=== PATIENT | female | born 1945 | race Caucasian/White ===

== ENCOUNTER 2018-11-14 00:15 | Outpatient (CLI) | payer MEDICARE, SELFPAY ==
--- NOTE | 2018-11-14 14:00 | DI.RAD_ITS ---
SYMPTOMS/DIAGNOSIS: SCREENING FOR OSTEOPOROSIS IN A POSTMENOPAUSAL WOMAN, Z78.0 DEXA SCAN: Routine examination. The lateral view of the spine shows no compression deformities. Evaluation of the left hip shows a total T score of -0.5 and a Z score of 1.1. This is within normal limits. This compares with a total T score of 0.6 from 2005. Evaluation of the lumbar spine shows a total T score of 2 and a Z score of 4.2. This is within normal limits. This compares with a total T score of 1.1 from 2005. There is no evidence of osteoporosis. IMPRESSION: No evidence of osteoporosis.
== END 2018-11-14 00:35 ==
PROVIDERS: PCP Physician Assistant Medical; Visit Provider Nurse Practitioner Family
DX: Z13.820 Encounter for screening for osteoporosis (principal); Z78.0 Asymptomatic menopausal state
CPT/HCPCS: 77080

== ENCOUNTER 2018-12-03 09:27 | Outpatient (REF) | payer MEDICARE, SELFPAY ==
[2018-12-03 21:10] LABS: Anion Gap 7.4 mmol/L (3-11); BUN 17 mg/dL (7-18); CO2 28.6 mmol/L (21.0-32.0); CREATININE 0.87 mg/dL (0.55-1.02); Calcium 9.1 mg/dL (8.5-10.1); Chloride 103 mmol/L (98-107); Cholesterol 179 mg/dL (50-200); Glucose 88 mg/dL (70-100); HDL Cholesterol 54 mg/dL (40-60); LDL CHOLESTEROL 108 mg/dL (<100); Sodium 139 mmol/L (136-145); Triglyceride 105 mg/dL (30-150)
== END 2018-12-03 09:47 ==
LOC: NCHCN 09:27
PROVIDERS: PCP Physician Assistant Medical; Visit Provider Nurse Practitioner Family
DX: I10 Essential (primary) hypertension (principal); E78.5 Hyperlipidemia, unspecified
CPT/HCPCS: 80048; 80061; 83721

== ENCOUNTER 2019-03-31 12:02 | Outpatient (REF) | payer MEDICARE, SELFPAY ==
[2019-03-31 22:52] LABS: ALT 25 U/L (12-78); AST 28 U/L (15-37); Creatine Kinase 395 U/L (26-192)
== END 2019-03-31 12:22 ==
LOC: NCHCN 12:02
PROVIDERS: PCP Physician Assistant Medical; Visit Provider Nurse Practitioner Family
DX: E78.5 Hyperlipidemia, unspecified (principal); R21 Rash and other nonspecific skin eruption; F17.209 Nicotine dependence, unspecified, with unspecified nicotine-induced disorders
CPT/HCPCS: 82550; 84450; 84460

== ENCOUNTER 2019-08-28 11:29 | Outpatient (REF) | payer MEDICARE, SELFPAY ==
[2019-08-28 22:27] LABS: C-Reactive Protein 0.19 mg/dL (0.0-0.3); Uric Acid 3.6 mg/dL (2.6-6.0)
[2019-08-28 22:41] LABS: HDL Cholesterol 59 mg/dL (40-60); LDL CHOLESTEROL 95 mg/dL (<100)
[2019-08-28 23:13] LABS: ESR 28 mm/hr (0-30)
== END 2019-08-28 11:49 ==
LOC: NCHCN 11:29
PROVIDERS: PCP Physician Assistant Medical; Visit Provider Nurse Practitioner Family
DX: E78.5 Hyperlipidemia, unspecified (principal); M10.041 Idiopathic gout, right hand
CPT/HCPCS: 83721; 85652; 83718; 84550; 86140

== ENCOUNTER 2019-10-09 14:45 | Outpatient (REF) | payer MEDICARE, SELFPAY ==
[2019-10-13 09:52] LABS: Beta 2 GP1 Ab IgG <9.4 U/mL; Beta 2 GP1 Ab IgM <9.4 U/mL
[2019-10-13 10:32] LABS: Cyclic Citrullinated Peptide <2.5 U/mL (<5.0)
[2019-10-13 12:55] LABS: Lyme Ab w Rflx to Lyme Confirm Negative (Negative)
[2019-10-14 15:31] LABS: ANA Interpretation Positive (Negative); ANA Titer Pattern 1:640 Homogeneous
== END 2019-10-09 15:05 ==
LOC: NCHCN 14:45
PROVIDERS: PCP Physician Assistant Medical; Visit Provider Nurse Practitioner Family
DX: M25.50 Pain in unspecified joint (principal)
CPT/HCPCS: 86146; 86200; 86038; 86431; 86618

== ENCOUNTER 2019-12-03 10:40 | Outpatient (REF) | payer MEDICARE, SELFPAY ==
[2019-12-03 20:34] LABS: Anion Gap 9.5 mmol/L (3-11); BUN 22 mg/dL (7-18); CO2 27.5 mmol/L (21.0-32.0); CREATININE 0.76 mg/dL (0.55-1.02); Calcium 8.8 mg/dL (8.5-10.1); Chloride 106 mmol/L (98-107); Glucose 83 mg/dL (74-106); Potassium 4.3 mmol/L (3.5-5.1); Sodium 143 mmol/L (136-145)
== END 2019-12-03 11:00 ==
LOC: NCHCN 10:40
PROVIDERS: PCP Physician Assistant Medical; Visit Provider Nurse Practitioner Family
DX: I10 Essential (primary) hypertension (principal)
CPT/HCPCS: 80048

== ENCOUNTER 2020-06-03 10:55 | Outpatient (REF) | payer MEDICARE, SELFPAY ==
[2020-06-03 19:51] LABS: HGB 13.6 g/dL (11.2-15.7); MCH 29.2 pg (27.0-33.0); MCHC 32.4 % (32.0-36.0); MCV 90.1 fL (80-95); MPV 11.2 fL (8.0-11.0); Platelet Count 215 10^3/uL (130-400); RBC 4.66 10^6/uL (3.93-5.22); RDW-SD 49.1 fL; WBC 8.86 10^3/uL (4.4-10.8)
[2020-06-03 20:28] LABS: ALT 19 U/L (14-59); AST 21 U/L (15-37); Anion Gap 7.6 mmol/L (3-11); BUN 18 mg/dL (7-18); CO2 26.4 mmol/L (21.0-32.0); CREATININE 0.75 mg/dL (0.55-1.02); Calcium 8.8 mg/dL (8.5-10.1); Chloride 103 mmol/L (98-107); Glucose 93 mg/dL (74-106); HDL Cholesterol 62 mg/dL (40-60); LDL CHOLESTEROL 84 mg/dL (<100); Sodium 137 mmol/L (136-145)
== END 2020-06-03 11:15 ==
LOC: NCHCN 10:55
PROVIDERS: PCP Physician Assistant Medical; Visit Provider Nurse Practitioner Family
DX: E78.5 Hyperlipidemia, unspecified (principal); I10 Essential (primary) hypertension; Z79.899 Other long term (current) drug therapy
CPT/HCPCS: 80048; 83721; 85027; 83718; 84450; 84460

== ENCOUNTER 2020-09-06 01:12 | Outpatient (CLI) | payer MEDICARE, SELFPAY ==
--- NOTE | 2020-09-06 | DI.MAMMO_ITS ---
EXAM: MG MAMMO SCREENING CLINICAL HISTORY: SCREENING,[facility],Z00.00. TECHNIQUE: Bilateral full field digital CC and MLO mammographic images were obtained with 3D tomosyn thesis and utilizing computer aided detection (CAD). COMPARISON: Prior mammograms dating back to 2011, the most recent being 2015. FINDINGS: There are no CAD designations. There are no spiculated masses nor malignant appearing microcalcification groups. There is no signif icant architectural distortion nor skin thickening-retraction. IMPRESSION: No radiographic evidence of malignancy. BI-RADS Category 1 - Negative Breast Density - Category B - Scattered areas of fibroglandular density Breast density Category C or D implies that the patient has dense breast tissue. Dense breast tissue can make it harder to find cancer on a mammogram. Dense breast tissue is also associated with an incr eased risk of breast cancer. This information about the result of the mammogram report was provided to the patient to raise their awareness. Use this report when you speak with the patient about their risks for breast cancer, which includes their family history. At that time, you may recommend additional screening tests (Ultrasoun d or MRI) as these tests may add significant information. A negative radiographic report should not delay biopsy if a dominant or clinically suspicious mass is present. Up to ten percent of cancers are not identified on mammography. A negative report may reinforce clinical impression. Adenosis and dense breasts may obscure an underlying neoplasm. False positive reports average 6 to 10%. Patient will receive a letter notifying them of these results.
== END 2020-09-06 01:32 ==
PROVIDERS: PCP Nurse Practitioner Family; Visit Provider Nurse Practitioner Family
DX: Z12.31 Encounter for screening mammogram for malignant neoplasm of breast (principal); Z00.00 Encounter for general adult medical examination without abnormal findings
CPT/HCPCS: 77063; 77067

== ENCOUNTER 2021-02-08 18:06 | Outpatient (CLI) | payer MEDICARE, SELFPAY ==
--- NOTE | 2021-02-08 | DI.RAD_ITS ---
Exam(s) XR CHEST 2V PA LATERAL EXAM: XR CHEST 2V PA LATERAL CLINICAL HISTORY: + QUANTIFERON TB GOLD TEST, R76.12 TECHNIQUE: 2D digital imaging was performed. COMPARISON: CR CHEST 2 VIEWS PA,LAT from 12/23/2009 CT ABD PELVIS WO CONTRAST from 04/25/2017 CT ABD PELVIS WO CONTRAST from 04/25/2017 FINDINGS: There is severe underlying fibrotic changes as well as emphysematous changes in both upper and lower lobes. The fibrotic changes appears somewhat more prominent when compared with the previous exam. T here is a question of a superimposed area of nodularity seen in the right mid lung field and in the r ight upper lobe. There is also question of an area of nodularity in the mid left lung field. There is no evidence of effusion. There is no gross evidence of adenopathy. The heart size is normal. Th ere is some calcification at the aortic arch. The bones are unremarkable. IMPRESSION: Underlying emphysematous and fibrotic changes. Question of super imposed areas bilateral nodularity. CT is recommended for further evaluation. DATA REPOSITORY: RADIATION DOSE DELIVERED:
== END 2021-02-08 18:26 ==
PROVIDERS: PCP Nurse Practitioner Family; Visit Provider Internal Medicine
DX: R76.12 Nonspecific reaction to cell mediated immunity measurement of gamma interferon antigen response without active tuberculosis (principal); J84.10 Pulmonary fibrosis, unspecified; J43.8 Other emphysema; R91.8 Other nonspecific abnormal finding of lung field
CPT/HCPCS: 71046

== ENCOUNTER 2021-02-14 01:11 | Outpatient (CLI) | payer MEDICARE, SELFPAY ==
--- NOTE | 2021-02-14 | DI.CT_ITS ---
Exam(s) CT CHEST W EXAM: CT CHEST W CLINICAL HISTORY: PULMONARY NODULE,R91.1,SMOKER,F17.210,POSITIVE TB GOLD TEST,R76.12. TECHNIQUE: Multi planar reconstructions were performed. CONTRAST MATERIAL: Omnipaque 350; 100 cc COMPARISON: CT ABD PELVIS WO CONTRAST from 04/25/2017 CR XR CHEST 2V PA LATERAL from 02/08/2021 CR XR CHEST 2V PA LATERAL from 02/08/2021 FINDINGS: CHEST: LUNGS: There is interstitial fibrosis both lung subramanian. In addition, there are significant nodular d ensities in the right lung, the largest measuring 3 x 2.5 cm in corresponding to finding on the recen t chest x-ray. Suspicious for malignancy. Also another slightly smaller nodule in the right upper l obe measuring 1.8 by 1.0 cm, also suspicious. Above this level medially is another slightly smaller nodule also suspicious. There are no distinct focal suspicious nodules in the opposite-left lung. T here are no pleural effusions on either side. No significant focal findings in the trachea and atilio tem bronchi. MEDIASTINUM: There is no hilar nor mediastinal adenopathy. Visualized thyroid unremarkable.Aberrant r ight subclavian artery noted CARDIAC: Heart size is normal. There is no pericardial effusion.Caliber of the thoracic aorta is wit hin normal limits. There is an aberrant right subclavian artery which crosses to the right side betw een the esophagus and vertebral body. VISUALIZED UPPER ABDOMEN:Small benign cyst in the upper pole right kidney which measures 10 millimete rs. There is an abdominal aortic stent graft only partially included field of view. OSSEOUS: No significant osseous lesions.. IMPRESSION: 1. Severe bilateral interstitial chronic fibrosis disease with superimposed suspicious nodular infilt rates in the right lung, the largest measuring approximately 3 x 2.5 cm. These are suspicious for ma lignancy. 2. There are no nodules in the left lung. No pleural effusions on either side. 3. No obvious adenopathy. Incidentally noted is an aberrant right subclavian artery. RADIATION DOSE DELIVERED: 497.91mGy.cm Total DLP DATA REPOSITORY: All CT scans at this facility are submitted to the National Radiology Data Registry (NRDR) Dose Index Registry (DIR) with the [employer] (ACR). RADIATION OPTIMIZATION: All CT scans at this facility use at least one of these dose optimization te chniques: automated exposure control; mA and/or kV adjustment per patient size (includes targeted exa ms where dose is matched to clinical indication); or iterative reconstruction.
[2021-02-14] MEDS: Omnipaque 350 MG/ML 100 ML BTL IV (14:34)
[2021-02-14] MEDS: Normal Saline - Diluent 50 ML VIAL IV (14:35)
== END 2021-02-14 01:31 ==
PROVIDERS: PCP Nurse Practitioner Family; Visit Provider Nurse Practitioner
DX: R91.1 Solitary pulmonary nodule (principal); F17.210 Nicotine dependence, cigarettes, uncomplicated; R76.12 Nonspecific reaction to cell mediated immunity measurement of gamma interferon antigen response without active tuberculosis; J84.10 Pulmonary fibrosis, unspecified; J98.4 Other disorders of lung
CPT/HCPCS: 71260; J3490

== ENCOUNTER 2021-03-08 01:06 | Outpatient (CLI) | payer MEDICARE, SELFPAY ==
--- NOTE | 2021-03-08 14:45 | DI.US_ITS ---
APPROVED REPORT EXAM: Comprehensive 2D, Doppler, and color-flow Echocardiogram Patient Location: Out-Patient Gastroenterology Nurse Practitioner: Indira Dubois RDCS (AE) Indications: Preop Exam, Lung mass Other Information Study Quality: Adequate Conclusion Normal left ventricular wall thickness and chamber size. Estimated ejection fraction is 60%. Wall m otion is normal Normal right ventricular size and systolic function Both atria are normal in size No significant valvular disease is identified Wall motion Left Ventricle The left ventricle is normal size. The left ventricular systolic function is normal. The left ventric ular ejection fraction is within the normal range. There is normal left ventricular wall thickness. T here is normal LV segmental wall motion. There is no ventricular septal defect visualized. LVEF is 58 %. Right Ventricle The right ventricle is normal size. The right ventricular systolic function is normal. The RVSP is 28 .9mmHg. Atria The left atrium size is normal. The right atrium size is normal. The interatrial septum is intact wit h no evidence for an atrial septal defect. Aortic Valve The aortic valve is normal in structure. Aortic valve is trileaflet. There is no aortic valvular sten osis. No aortic regurgitation is present. Mitral Valve The mitral valve is normal in structure. No evidence of mitral valve stenosis. Trace mitral regurgita tion. Tricuspid Valve The tricuspid valve is normal in structure. There is no tricuspid valve stenosis. Mild tricuspid regu rgitation. Pulmonic Valve The pulmonary valve is normal in structure. There is no pulmonic valvular stenosis. Mild pulmonic reg urgitation. Great Vessels The aortic root is normal in size. The ascending aorta is moderately dilated. Aortic arch is normal i n caliber. IVC is normal in size and collapses >50% with inspiration. Pericardium There is no pericardial effusion. 2D Dimensions IVSD d PLAX 0.93 cm F: 0.6-1.0 LV Vol A2C d MOD 86.6 mL LVPW d PLAX 0.93 cm F: 0.6 - 1.0 LV Vol A4C d MOD 89.5 mL LVID d PLAX 4.66 cm F: 3.8 - 5.2 LA vol/ BSA A2C s A-L 14.7 mL/m2 LVDs 3.00 cm F: 2.2 - 3.5 LA vol/ BSA A4C s A-L 10.3 mL/m2 Ao Root d 3.01 cm F: 2.7 - 3.3 LA Vol/ BSA Biplane s A-L 12.8 mL/m2 RA Area A4C 11.41 cm2 LA Area A4C s MOD 8.85 cm2 RA Vol/ BSA A4C s A-L 15.2 mL/m2 LA Area A2C s MOD 10.16 cm2 Ao Asc Diam d 3.61 cm F: 2.3 - 3.1 LV EF A4C MOD 57.1 % LV EF Teichholz 63.9 % LV EF A2C MOD 58.4 % LVEF (Scott's) 57.39 % F: 54 - 74 LV EF Biplane MOD 57.4 % LV Volume 71.46 mL F: 46 - 106 SV 52.09 mL LV Volume Index 41.06 mL/m2 F: 29 - 61 SV Index 29.93 mL/m2 LV Vol Biplane MOD 90.8 mL FS 34.70 % M-Mode TAPSE 2.72 cm (M/F) >1.7 LV Diastology MV E' medial 0.106 (>0.07 m/s) E/A Ratio 0.8 LV E/e MED 6.50 (<14) MV E Vmax 0.69 (0.4-1.3 m/s) MV E' lateral 0.084 (>0.1 m/s) MV A Vmax 0.85 (0.4-1.3 m/s) LV E/e LAT 8.20 (<14) MV E/A Ratio 0.79 MV E/E' medial 6.53 MV E/E' lateral 8.24 Aortic Valve LVOT Area 3.15 cm2 AoV Area Vmax 2.25 cm2 LVOT Vmax 1.21 m/s AoV Area/ BSA (Vmax) 1.30 cm2/m2 LVOT Mean Korey. 0.76 m/s MAGDI Mean Korey. 2.11 cm2 LVOT Peak Grad 5.8 mmHg MAGDI Mean Korey. Index 1.21 cm2/m2 LVOT Mean Grad 2.8 mmHg LVOT VTI 0.230 m LVOT Diam s 2.00 cm AoV Vmax 1.69 m/s Velocity Ratio 0.71 AoV Mean Korey. 1.13 m/s AoV Peak Grad 11.4 mmHg LVOT SV 72.32 mL AoV Mean Grad 5.8 mmHg AoV VTI 0.324 m AoV Area VTI 2.23 cm2 AoV Area/ BSA (VTI) 1.28 cm/m2 Mitral Valve MV DT 257 (160-240 msec) MV PHT 75 msec MV Area PHT 2.95 cm2 MV VTI 0.273 m MV VTI Annulus 0.280 m MV Area VTI 2.72 (4.0-6.0 cm2) Pulmonary Valve PV Vmax 1.13 (0.5-1.5 m/s) RVOT Peak Gr. 2.72 mmHg PV Peak Grad 5.1 mmHg RVOT Mean Gr. 1.15 mmHg PV Mean Grad 2.5 mmHg RVOT VTI 0.155 m PV VTI 0.192 m RVOT Vmax 0.82 m/s Tricuspid Valve TR Peak Grad 25.8 mmHg TR Vmax 2.54 m/s RA Pressure 3.00 mmHg RVSP (TR) 28.9 mmHg
== END 2021-03-08 01:26 ==
PROVIDERS: PCP Nurse Practitioner Family; Visit Provider Nurse Practitioner Family
DX: Z01.818 Encounter for other preprocedural examination (principal); I77.810 Thoracic aortic ectasia
CPT/HCPCS: 93306

== ENCOUNTER 2021-04-08 04:00 | Outpatient (CLI) | payer MEDICARE, SELFPAY ==
[2021-04-13 12:58] LABS: TB Interpretation Negative (Negative); TB1 Ag minus Nil 0.04 IU/ml
== END 2021-04-08 04:01 | disposition home or self-care (01) ==
LOC: LBO 04:01
PROVIDERS: PCP Nurse Practitioner Family; Visit Provider Nurse Practitioner
DX: R76.12 Nonspecific reaction to cell mediated immunity measurement of gamma interferon antigen response without active tuberculosis (principal)
CPT/HCPCS: 36415; 86480

== ENCOUNTER 2021-04-11 02:18 | Outpatient (RCR) | payer MEDICARE, SELFPAY ==
[2021-04-11 09:05] LABS: Abs Immature Grans 0.03 10^3/uL (0.0-0.06); Absolute Basophil Count 0.03 10^3/uL (0.0-0.2); Absolute Eosinophil Count 0.12 10^3/uL (0.0-0.7); Absolute Lymphocyte Count 1.43 10^3/uL (1.2-3.4); Absolute Monocyte Count 0.66 10^3/uL (0.1-0.8); Absolute Neutrophil Count 4.66 10^3/uL (1.2-6.7); Basophils % 0.4; Eosinophils % 1.7; HCT 37.6 % (36.0-46.0); HGB 12.3 g/dL (11.2-15.7); Immature Grans % 0.4; Lymphocytes % 20.6; MCH 28.8 pg (27.0-33.0); MCHC 32.7 % (32.0-36.0); MCV 88.1 fL (80-95); MPV 9.8 fL (8.0-11.0); Monocytes % 9.5; Neutrophils % 67.4; Nucleated RBC 0 %; Platelet Count 238 10^3/uL (130-400); RBC 4.27 10^6/uL (3.93-5.22); RDW 14.4 % (11.7-14.6); RDW-SD 46.1 fL; WBC 6.93 10^3/uL (4.4-10.8)
[2021-04-11 09:27] LABS: ALT 16 U/L (14-59); AST 24 U/L (15-37); Albumin 3.1 g/dL (3.4-5.0); Alkaline Phosphatase 31 U/L (46-116); Anion Gap 7.2 mmol/L (3-11); BUN 16 mg/dL (7-18); Bilirubin, Total 0.4 mg/dL (0.2-1.0); CO2 26.8 mmol/L (21.0-32.0); CREATININE 0.8 mg/dL (0.55-1.02); Calcium 8.2 mg/dL (8.5-10.1); Chloride 102 mmol/L (98-107); FREE T4 1.23 ng/dL (0.76-1.46); Glucose 90 mg/dL (74-106); Magnesium 1.6 mg/dL (1.8-2.4); Potassium 3.6 mmol/L (3.5-5.1); Sodium 136 mmol/L (136-145); TSH 1.62 uIU/mL (0.36-3.74); Total Protein 7.4 g/dL (6.4-8.2)
[2021-04-11] MEDS: Normal Saline Flush 10 ML SYR IVP (09:44)
== END 2021-04-23 23:59 | disposition home or self-care (01) ==
LOC: INF 02:18
PROVIDERS: PCP Nurse Practitioner Family; Visit Provider Internal Medicine Medical Oncology
DX: C34.91 Malignant neoplasm of unspecified part of right bronchus or lung (principal); Z79.899 Other long term (current) drug therapy; Z45.2 Encounter for adjustment and management of vascular access device
CPT/HCPCS: 36591; 80053; 83735; 84439; 84443; 85025

== ENCOUNTER 2021-05-16 01:30 | Outpatient (CLI) | payer MEDICARE, SELFPAY ==
--- NOTE | 2021-05-16 | DI.CT_ITS ---
Exam(s) CT CHEST W EXAM: CT CHEST W CLINICAL HISTORY: STAGE 4 LUNG CA RT, C34.91, RESTAGING. TECHNIQUE: Multi planar reconstructions were performed. CONTRAST MATERIAL: Omnipaque 350; 75 cc COMPARISON: CT CT CHEST W from 02/14/2021 FINDINGS: CHEST: LUNGS: Again noted is interpositional fibrosis in both lung subramanian including honeycombing bilaterally . In the right lung the largest infiltrate previously described as decreased in size, previously marcell suring 3 x 2.4 cm and presently measuring 2.7 by 1.8 cm. A paracentral right upper lobe density is a gain noted. Previously present right upper lobe nodule measuring 12 x 12 millimeters as almost compl etely resolved. Pleural based density anteriorly in the right upper lobe appears unchanged. No new right lung findings small density in the left lung is somewhat less evident on the present study. No pleural effusion on either side. Nor pleural effusion. MEDIASTINUM: There is no hilar nor mediastinal adenopathy. No supraclavicular adenopathy.Visualized t hyroid unremarkable. CARDIAC: Heart size is normal. There is no pericardial effusion.Coronary artery calcification noted. Aberrant right subclavian artery is again noted. VISUALIZED UPPER ABDOMEN:There are no significant adrenal masses. OSSEOUS: No significant osseous lesions.. IMPRESSION: 1. Compared to the prior CT scan of 02/14/2021 there is again noted severe bilateral interstitial chr onic fibrotic disease in both lung subramanian, including bilateral honeycombing. 2. Previously described right lung infiltrates are again noted. A few of these have significantly de creased in size in a few of remained unchanged. There are no new lung nodules evident. No pleural e ffusions. 3. No obvious intrathoracic adenopathy. Again noted is an aberrant right subclavian artery, previously documented. RADIATION DOSE DELIVERED: 459.39mGy.cm Total DLP DATA REPOSITORY: All CT scans at this facility are submitted to the National Radiology Data Registry (NRDR) Dose Index Registry (DIR) with the [employer] (ACR). RADIATION OPTIMIZATION: All CT scans at this facility use at least one of these dose optimization te chniques: automated exposure control; mA and/or kV adjustment per patient size (includes targeted exa ms where dose is matched to clinical indication); or iterative reconstruction.
[2021-05-16] MEDS: Omnipaque 350 MG/ML 100 ML BTL 70 ML IJ (14:17)
== END 2021-05-16 01:50 ==
PROVIDERS: PCP Nurse Practitioner Family; Visit Provider Internal Medicine Medical Oncology
DX: C34.91 Malignant neoplasm of unspecified part of right bronchus or lung (principal); J84.170 Interstitial lung disease with progressive fibrotic phenotype in diseases classified elsewhere; J98.4 Other disorders of lung; Q27.8 Other specified congenital malformations of peripheral vascular system; R91.8 Other nonspecific abnormal finding of lung field
CPT/HCPCS: 36591; 71260; J3490

== ENCOUNTER 2021-05-23 02:46 | Outpatient (RCR) | payer MEDICARE, SELFPAY ==
[2021-04-27] MEDS: Normal Saline Flush 10 ML SYR IVP (10:49)
[2021-04-27] MEDS: Heparin 500 UNITS/5 ML SYRINGE IV (10:49)
[2021-04-27 10:53] LABS: Absolute Basophil Count 0.04 10^3/uL (0.0-0.2); Absolute Eosinophil Count 0.05 10^3/uL (0.0-0.7); Absolute Lymphocyte Count 1.23 10^3/uL (1.2-3.4); Absolute Monocyte Count 0.98 10^3/uL (0.1-0.8); Basophils % 1.4; Eosinophils % 1.7; HCT 36.1 % (36.0-46.0); HGB 11.7 g/dL (11.2-15.7); Immature Grans % 3.5; Lymphocytes % 42.6; MCH 28.5 pg (27.0-33.0); MCHC 32.4 % (32.0-36.0); MCV 87.8 fL (80-95); MPV 8.7 fL (8.0-11.0); Monocytes % 33.9; Neutrophils % 16.9; Nucleated RBC 0 %; Platelet Count 271 10^3/uL (130-400); RBC 4.11 10^6/uL (3.93-5.22); RDW 14.6 % (11.7-14.6); RDW-SD 46.5 fL; WBC 2.89 10^3/uL (4.4-10.8)
[2021-04-27 11:08] LABS: Absolute Neutrophil Count 0.49 10^3/uL (1.2-6.7); Diff Comment Diff Reviewed; RBC Morphology Normal
[2021-04-27 11:16] LABS: ALT 19 U/L (14-59); AST 18 U/L (15-37); Albumin 3.2 g/dL (3.4-5.0); Alkaline Phosphatase 38 U/L (46-116); Anion Gap 6.3 mmol/L (3-11); BUN 8 mg/dL (7-18); Bilirubin, Total 0.4 mg/dL (0.2-1.0); CO2 28.7 mmol/L (21.0-32.0); CREATININE 0.6 mg/dL (0.55-1.02); Chloride 99 mmol/L (98-107); FREE T4 1.23 ng/dL (0.76-1.46); Glucose 94 mg/dL (74-106); Sodium 134 mmol/L (136-145); TSH 1.26 uIU/mL (0.36-3.74); Total Protein 7.8 g/dL (6.4-8.2)
[2021-05-02] MEDS: Normal Saline Flush 10 ML SYR IVP (08:48)
[2021-05-02 09:27] LABS: HGB 11.1 g/dL (11.2-15.7); MCH 28.3 pg (27.0-33.0); MCHC 32.6 % (32.0-36.0); MCV 86.7 fL (80-95); MPV 9.1 fL (8.0-11.0); Nucleated RBC 0 %; Platelet Count 325 10^3/uL (130-400); RBC 3.92 10^6/uL (3.93-5.22)
[2021-05-02 09:38] LABS: Absolute Lymphocyte Count 1.34 10^3/uL (1.2-3.4); Absolute Monocyte Count 0.93 10^3/uL (0.1-0.8); Absolute Neutrophil Count 7.62 10^3/uL (1.2-6.7); Bands % 4; Diff Comment Manual Differential; RBC Morphology Normal
[2021-05-02 09:52] LABS: ALT 16 U/L (14-59); AST 20 U/L (15-37); Albumin 2.9 g/dL (3.4-5.0); Alkaline Phosphatase 33 U/L (46-116); Anion Gap 6.2 mmol/L (3-11); BUN 10 mg/dL (7-18); Bilirubin, Total 0.4 mg/dL (0.2-1.0); CO2 28.8 mmol/L (21.0-32.0); CREATININE 0.7 mg/dL (0.55-1.02); Calcium 8.5 mg/dL (8.5-10.1); Chloride 101 mmol/L (98-107); Glucose 96 mg/dL (74-106); Potassium 4.1 mmol/L (3.5-5.1); Sodium 136 mmol/L (136-145); TSH 0.94 uIU/mL (0.36-3.74); Total Protein 7.3 g/dL (6.4-8.2)
[2021-05-02 13:33] LABS: Metamyelocytes % 4
[2021-05-16] MEDS: Normal Saline Flush 10 ML SYR IVP (13:23)
[2021-05-16] MEDS: Heparin 500 UNITS/5 ML SYRINGE IV (13:24)
[2021-05-23] MEDS: Normal Saline Flush 10 ML SYR IVP (08:39)
[2021-05-23 09:03] LABS: HCT 34.6 % (36.0-46.0); HGB 10.9 g/dL (11.2-15.7); MCH 28.1 pg (27.0-33.0); MCHC 31.5 % (32.0-36.0); MCV 89.2 fL (80-95); MPV 8.9 fL (8.0-11.0); Nucleated RBC 0 %; RBC 3.88 10^6/uL (3.93-5.22); RDW 16.4 % (11.7-14.6); RDW-SD 51.3 fL; WBC 11.62 10^3/uL (4.4-10.8)
[2021-05-23 09:19] LABS: Absolute Lymphocyte Count 0.81 10^3/uL (1.2-3.4); Absolute Neutrophil Count 8.72 10^3/uL (1.2-6.7); Bands % 7; Platelet Count 389 10^3/uL (130-400)
[2021-05-23 09:20] LABS: Absolute Basophil Count 0.12 10^3/uL (0.0-0.2); Absolute Eosinophil Count 0.12 10^3/uL (0.0-0.7); Absolute Monocyte Count 1.05 10^3/uL (0.1-0.8); Diff Comment Manual Differential; Metamyelocytes % 6; Myelocytes % 1; Polychromasia Present
[2021-05-23 09:27] LABS: ALT 23 U/L (14-59); AST 19 U/L (15-37); Albumin 3.1 g/dL (3.4-5.0); Alkaline Phosphatase 39 U/L (46-116); Anion Gap 9.5 mmol/L (3-11); BUN 10 mg/dL (7-18); Bilirubin, Total 0.2 mg/dL (0.2-1.0); CO2 27.5 mmol/L (21.0-32.0); CREATININE 0.7 mg/dL (0.55-1.02); Calcium 8.8 mg/dL (8.5-10.1); Chloride 100 mmol/L (98-107); Glucose 102 mg/dL (74-106); Sodium 137 mmol/L (136-145); TSH 1.41 uIU/mL (0.36-3.74); Total Protein 7.5 g/dL (6.4-8.2)
[2021-05-23 10:15] LABS: Magnesium 1.8 mg/dL (1.8-2.4)
[2021-05-23 10:25] LABS: FREE T4 1.02 ng/dL (0.76-1.46)
== END 2021-05-24 23:59 | disposition home or self-care (01) ==
LOC: INF 02:46
PROVIDERS: PCP Nurse Practitioner Family; Visit Provider Internal Medicine Medical Oncology
DX: C34.91 Malignant neoplasm of unspecified part of right bronchus or lung (principal); Z79.899 Other long term (current) drug therapy; Z45.2 Encounter for adjustment and management of vascular access device
CPT/HCPCS: 36591; 80053; 83735; 84439; 84443; 85025

== ENCOUNTER 2021-06-13 09:00 | Outpatient (RCR) | payer MEDICARE, SELFPAY ==
[2021-06-13] MEDS: Normal Saline Flush 10 ML SYR IVP (09:19)
[2021-06-13 09:47] LABS: Abs Immature Grans 0.56 10^3/uL (0.0-0.06); Absolute Eosinophil Count 0.09 10^3/uL (0.0-0.7); Absolute Lymphocyte Count 1.57 10^3/uL (1.2-3.4); Absolute Monocyte Count 1.54 10^3/uL (0.1-0.8); Absolute Neutrophil Count 5.28 10^3/uL (1.2-6.7); Basophils % 1.1; HCT 33.2 % (36.0-46.0); HGB 10.8 g/dL (11.2-15.7); Immature Grans % 6.1; Lymphocytes % 17.2; MCH 29.1 pg (27.0-33.0); MCHC 32.5 % (32.0-36.0); MCV 89.5 fL (80-95); MPV 9.1 fL (8.0-11.0); Monocytes % 16.8; Neutrophils % 57.8; Nucleated RBC 0 %; Platelet Count 365 10^3/uL (130-400); RBC 3.71 10^6/uL (3.93-5.22); RDW 18.1 % (11.7-14.6); RDW-SD 58.1 fL; WBC 9.14 10^3/uL (4.4-10.8)
[2021-06-13 09:54] LABS: Magnesium 2.1 mg/dL (1.8-2.4)
[2021-06-13 10:06] LABS: ALT 16 U/L (14-59); AST 19 U/L (15-37); Albumin 3.2 g/dL (3.4-5.0); Alkaline Phosphatase 35 U/L (46-116); Anion Gap 7.3 mmol/L (3-11); BUN 10 mg/dL (7-18); Bilirubin, Total 0.4 mg/dL (0.2-1.0); CO2 29.7 mmol/L (21.0-32.0); CREATININE 0.7 mg/dL (0.55-1.02); Calcium 8.6 mg/dL (8.5-10.1); Chloride 102 mmol/L (98-107); FREE T4 1.13 ng/dL (0.76-1.46); Glucose 101 mg/dL (74-106); Potassium 4.1 mmol/L (3.5-5.1); Sodium 139 mmol/L (136-145); TSH 0.92 uIU/mL (0.36-3.74); Total Protein 7.4 g/dL (6.4-8.2)
[2021-06-13 10:27] LABS: Diff Comment Diff Reviewed; RBC Morphology Normal
== END 2021-06-23 23:59 | disposition home or self-care (01) ==
LOC: INF 09:00
PROVIDERS: PCP Nurse Practitioner Family; Visit Provider Internal Medicine Medical Oncology
DX: C34.91 Malignant neoplasm of unspecified part of right bronchus or lung (principal); Z79.899 Other long term (current) drug therapy; Z45.2 Encounter for adjustment and management of vascular access device
CPT/HCPCS: 36591; 80053; 83735; 84439; 84443; 85025

== ENCOUNTER 2021-08-22 01:40 | Outpatient (RCR) | payer MEDICARE, SELFPAY ==
[2021-08-01] MEDS: Normal Saline Flush 10 ML SYR IVP (13:45)
[2021-08-01 14:19] LABS: Abs Immature Grans 0.03 10^3/uL (0.0-0.06); Absolute Basophil Count 0.02 10^3/uL (0.0-0.2); Absolute Eosinophil Count 0.04 10^3/uL (0.0-0.7); Absolute Lymphocyte Count 1.08 10^3/uL (1.2-3.4); Absolute Neutrophil Count 6.09 10^3/uL (1.2-6.7); Basophils % 0.3; Eosinophils % 0.5; HCT 31.6 % (36.0-46.0); HGB 10.1 g/dL (11.2-15.7); Immature Grans % 0.4; Lymphocytes % 14.1; MCH 28.6 pg (27.0-33.0); MCV 89.5 fL (80-95); MPV 9.1 fL (8.0-11.0); Monocytes % 5.2; Neutrophils % 79.5; Nucleated RBC 0 %; Platelet Count 287 10^3/uL (130-400); RBC 3.53 10^6/uL (3.93-5.22); RDW-SD 55.8 fL; WBC 7.66 10^3/uL (4.4-10.8)
[2021-08-01 14:37] LABS: ALT 11 U/L (14-59); AST 18 U/L (15-37); Alkaline Phosphatase 27 U/L (46-116); Anion Gap 6.8 mmol/L (3-11); BUN 17 mg/dL (7-18); Bilirubin, Total 0.4 mg/dL (0.2-1.0); CO2 29.2 mmol/L (21.0-32.0); CREATININE 0.7 mg/dL (0.55-1.02); Calcium 8.8 mg/dL (8.5-10.1); Chloride 103 mmol/L (98-107); FREE T4 1.25 ng/dL (0.76-1.46); Glucose 91 mg/dL (74-106); Potassium 3.9 mmol/L (3.5-5.1); Sodium 139 mmol/L (136-145); TSH 1.42 uIU/mL (0.36-3.74); Total Protein 7.3 g/dL (6.4-8.2)
[2021-08-22] MEDS: Normal Saline Flush 10 ML SYR IVP (11:09)
[2021-08-22 11:10] LABS: Abs Immature Grans 0.04 10^3/uL (0.0-0.06); Absolute Basophil Count 0.03 10^3/uL (0.0-0.2); Absolute Eosinophil Count 0.08 10^3/uL (0.0-0.7); Absolute Lymphocyte Count 1.18 10^3/uL (1.2-3.4); Absolute Monocyte Count 0.52 10^3/uL (0.1-0.8); Absolute Neutrophil Count 6.15 10^3/uL (1.2-6.7); Basophils % 0.4; HCT 33.9 % (36.0-46.0); HGB 10.6 g/dL (11.2-15.7); Immature Grans % 0.5; Lymphocytes % 14.8; MCH 28.7 pg (27.0-33.0); MCHC 31.3 % (32.0-36.0); MCV 91.9 fL (80-95); MPV 8.9 fL (8.0-11.0); Monocytes % 6.5; Neutrophils % 76.8; Nucleated RBC 0 %; Platelet Count 243 10^3/uL (130-400); RBC 3.69 10^6/uL (3.93-5.22); RDW 16.3 % (11.7-14.6); RDW-SD 55.7 fL
[2021-08-22 11:31] LABS: ALT 13 U/L (14-59); AST 19 U/L (15-37); Albumin 3.2 g/dL (3.4-5.0); Alkaline Phosphatase 29 U/L (46-116); BUN 19 mg/dL (7-18); Bilirubin, Total 0.3 mg/dL (0.2-1.0); CREATININE 0.7 mg/dL (0.55-1.02); Calcium 8.7 mg/dL (8.5-10.1); Chloride 105 mmol/L (98-107); FREE T4 1.14 ng/dL (0.76-1.46); Glucose 99 mg/dL (74-106); Magnesium 1.8 mg/dL (1.8-2.4); Potassium 3.8 mmol/L (3.5-5.1); Sodium 140 mmol/L (136-145); TSH 1.59 uIU/mL (0.36-3.74); Total Protein 7.1 g/dL (6.4-8.2)
== END 2021-08-23 23:59 | disposition home or self-care (01) ==
LOC: INF 01:40
PROVIDERS: PCP Nurse Practitioner Family; Visit Provider Internal Medicine Medical Oncology
DX: Z79.899 Other long term (current) drug therapy (principal); C34.91 Malignant neoplasm of unspecified part of right bronchus or lung; Z45.2 Encounter for adjustment and management of vascular access device
CPT/HCPCS: 36591; 80053; 83735; 84439; 84443; 85025

== ENCOUNTER 2021-09-12 01:28 | Outpatient (RCR) | payer MEDICARE, SELFPAY ==
[2021-09-12] MEDS: Normal Saline Flush 10 ML SYR IVP (09:55)
[2021-09-12 10:07] LABS: Abs Immature Grans 0.05 10^3/uL (0.0-0.06); Absolute Basophil Count 0.04 10^3/uL (0.0-0.2); Absolute Eosinophil Count 0.04 10^3/uL (0.0-0.7); Absolute Lymphocyte Count 0.98 10^3/uL (1.2-3.4); Absolute Monocyte Count 0.29 10^3/uL (0.1-0.8); Absolute Neutrophil Count 7.17 10^3/uL (1.2-6.7); Basophils % 0.5; Eosinophils % 0.5; HCT 38.6 % (36.0-46.0); HGB 11.8 g/dL (11.2-15.7); Immature Grans % 0.6; Lymphocytes % 11.4; MCHC 30.6 % (32.0-36.0); MCV 91.7 fL (80-95); MPV 9.2 fL (8.0-11.0); Monocytes % 3.4; Neutrophils % 83.6; Nucleated RBC 0 %; Platelet Count 239 10^3/uL (130-400); RBC 4.21 10^6/uL (3.93-5.22); RDW 15.9 % (11.7-14.6); WBC 8.57 10^3/uL (4.4-10.8)
[2021-09-12 10:31] LABS: ALT 16 U/L (14-59); AST 17 U/L (15-37); Albumin 3.4 g/dL (3.4-5.0); Alkaline Phosphatase 30 U/L (46-116); Anion Gap 6.6 mmol/L (3-11); BUN 25 mg/dL (7-18); Bilirubin, Total 0.4 mg/dL (0.2-1.0); CO2 28.4 mmol/L (21.0-32.0); CREATININE 0.8 mg/dL (0.55-1.02); Calcium 8.6 mg/dL (8.5-10.1); Chloride 104 mmol/L (98-107); Glucose 121 mg/dL (74-106); Magnesium 1.9 mg/dL (1.8-2.4); Potassium 3.7 mmol/L (3.5-5.1); Sodium 139 mmol/L (136-145); TSH 0.96 uIU/mL (0.36-3.74); Total Protein 7.6 g/dL (6.4-8.2)
== END 2021-09-23 23:59 | disposition home or self-care (01) ==
LOC: INF 01:28
PROVIDERS: PCP Nurse Practitioner Family; Visit Provider Internal Medicine Medical Oncology
DX: C34.91 Malignant neoplasm of unspecified part of right bronchus or lung (principal); Z79.899 Other long term (current) drug therapy
CPT/HCPCS: 36591; 80053; 86850; 86900; 86901; 83735; 84439; 84443; 85025

== ENCOUNTER 2021-10-06 03:04 | Outpatient (CLI) | payer MEDICARE, SELFPAY ==
--- NOTE | 2021-10-06 13:00 | DI.CT_ITS ---
Exam(s) CT CHEST W EXAM: CT CHEST W CLINICAL HISTORY: STAGE IV LUNG CA, RT, C34.91, SCLC ON IMMUNOTHERAPY TECHNIQUE: Imaging Protocol: Axial computed tomography images with coronal and sagittal reformatted images were created and reviewed CONTRAST MATERIAL: Intravenous: Omnipaque 350 Contrast volume:70 ml. COMPARISON: CT CT CHEST W from 05/16/2021 FINDINGS: Tracheobronchial tree: No bronchiectasis or mucous plugging. Pulmonary parenchyma: Severe underlying emphysematous and fibrotic changes with peripheral honeycombi ng. Stable area of nodular scarring medial right upper lobe. Interval decrease in size of previousl y measured pulmonary nodules in the inferior right upper lobe Pleura: No effusion or pneumothorax. Heart: The heart is mildly dilated. coronary artery calcifications are seen. Aorta: Atherosclerotic changes. Aberrant right subclavian artery. Upper abdomen: Unremarkable. Lymph nodes: Interval significant worsening of right hilar adenopathy, 1.9 by 2. 7 by 2.7 by 2.7. Tw o adjacent precarinal lymph nodes measuring 1.7 cm each in transverse diameter. Bones: Degenerative changes Tubes, Catheters, and Lines: Port over right upper pectoral muscle. Soft tissues: Unremarkable. IMPRESSION: 1. Significant interval increase in size of right hilar and mediastinal adenopathy. Previously patrick ured right upper lobe masses appear to have decreased in size. There is a stable mass versus nodular ity seen medially in the right upper lobe. RADIATION DOSE DELIVERED: 442.43mGy.cm Total DLP DATA REPOSITORY: All CT scans at this facility are submitted to the National Radiology Data Registry (NRDR) Dose Index Registry (DIR) with the [employer] (ACR). RADIATION OPTIMIZATION: All CT scans at this facility use at least one of these dose optimization te chniques: automated exposure control; mA and/or kV adjustment per patient size (includes targeted exa ms where dose is matched to clinical indication); or iterative reconstruction.
[2021-10-06] MEDS: Omnipaque 350 MG/ML 100 ML BTL 70 ML IJ (13:24)
== END 2021-10-06 03:24 ==
PROVIDERS: PCP Nurse Practitioner Family; Visit Provider Nurse Practitioner Adult Health
DX: C34.91 Malignant neoplasm of unspecified part of right bronchus or lung (principal)
CPT/HCPCS: 96523; 71260; J3490

== ENCOUNTER 2021-10-06 03:35 | Outpatient (RCR) | payer MEDICARE, SELFPAY ==
[2021-10-03] MEDS: Normal Saline Flush 10 ML SYR IVP (12:11)
[2021-10-03 12:21] LABS: Abs Immature Grans 0.04 10^3/uL (0.0-0.06); Absolute Basophil Count 0.03 10^3/uL (0.0-0.2); Absolute Eosinophil Count 0.02 10^3/uL (0.0-0.7); Absolute Lymphocyte Count 1.29 10^3/uL (1.2-3.4); Absolute Monocyte Count 0.33 10^3/uL (0.1-0.8); Absolute Neutrophil Count 8.56 10^3/uL (1.2-6.7); Basophils % 0.3; Eosinophils % 0.2; HCT 40.8 % (36.0-46.0); HGB 12.5 g/dL (11.2-15.7); Immature Grans % 0.4; Lymphocytes % 12.6; MCH 27.6 pg (27.0-33.0); MCHC 30.6 % (32.0-36.0); MCV 90.1 fL (80-95); MPV 9.1 fL (8.0-11.0); Monocytes % 3.2; Neutrophils % 83.3; Nucleated RBC 0 %; Platelet Count 230 10^3/uL (130-400); RBC 4.53 10^6/uL (3.93-5.22); RDW 15.8 % (11.7-14.6); RDW-SD 52.7 fL; WBC 10.27 10^3/uL (4.4-10.8)
[2021-10-03 12:44] LABS: ALT 18 U/L (14-59); AST 18 U/L (15-37); Albumin 3.6 g/dL (3.4-5.0); Alkaline Phosphatase 34 U/L (46-116); Anion Gap 8.2 mmol/L (3-11); BUN 26 mg/dL (7-18); Bilirubin, Total 0.5 mg/dL (0.2-1.0); CO2 28.8 mmol/L (21.0-32.0); CREATININE 0.9 mg/dL (0.55-1.02); Calculated LDL 89 mg/dL (<100); Chloride 102 mmol/L (98-107); Cholesterol 201 mg/dL (<200); Glucose 104 mg/dL (74-106); HDL Cholesterol 90 mg/dL (40-60); Magnesium 1.9 mg/dL (1.8-2.4); Sodium 139 mmol/L (136-145); TSH 1.04 uIU/mL (0.36-3.74); Total Protein 7.9 g/dL (6.4-8.2); Triglyceride 111 mg/dL (<150)
[2021-10-03 13:01] LABS: Creatine Kinase 55 U/L (26-192); FREE T4 1.04 ng/dL (0.76-1.46)
[2021-10-06] MEDS: Heparin 500 UNITS/5 ML SYRINGE IV (12:29)
[2021-10-06] MEDS: Normal Saline Flush 10 ML SYR IVP (12:29)
== END 2021-10-24 23:59 | disposition home or self-care (01) ==
LOC: INF 03:35
PROVIDERS: PCP Nurse Practitioner Family; Visit Provider Internal Medicine Medical Oncology
DX: C34.91 Malignant neoplasm of unspecified part of right bronchus or lung (principal); E78.5 Hyperlipidemia, unspecified; I10 Essential (primary) hypertension; Z45.2 Encounter for adjustment and management of vascular access device
CPT/HCPCS: 36591; 80053; 80061; 82550; 96523; 83735; 84439; 84443; 85025

== ENCOUNTER 2021-11-18 02:46 | Outpatient (CLI) | payer MEDICARE, SELFPAY ==
--- NOTE | 2021-11-18 | DI.DEXA_ITS ---
Exam(s) XR DEXA BONE DENSITY W/WO AICHA EXAM: XR DEXA BONE DENSITY W/WO AICHA CLINICAL HISTORY: OSTEOPOROSIS, M81.0,POSTMENIOPAUSAL,ON CHRONIC STEROIDS FOR RA,ASSESS FOR TECHNIQUE: Routine DEXA evaluation of the lumbar spine, hip, or forearm. COMPARISON: Prior DEXA scan October 2018 was compared FINDINGS: Performed on a [employer] unit. Lateral image: No compression fracture evident. Aortic EVAR noted Lumbar Spine total T-score: 1.0. Prior 2019 reading was 2.0 Hip total T-score:-1.2. Prior 2019 reading was -0.5 Independent reading at the level of the femoral neck yields at T-score of -1.6. Forearm total T-score: -2.3 IMPRESSION: Bone mineral density measures in the osteopenia range. Fracture risk is moderate. Note: Any spine fracture indicates 5x risk for subsequent spine fracture and 2x risk for subsequent h ip fracture. World Health Organization criteria for BMD interpretation classify patients: Normal...... T- Score at or above -1.0 Osteopenic... T- Score between -1.0 and -2.5 Osteoporosis... T-Score at or below -2.5
== END 2021-11-18 03:06 ==
PROVIDERS: PCP Nurse Practitioner Family; Visit Provider Nurse Practitioner
DX: M85.89 Other specified disorders of bone density and structure, multiple sites (principal); Z13.820 Encounter for screening for osteoporosis
CPT/HCPCS: 77080

== ENCOUNTER 2021-11-21 01:21 | Outpatient (RCR) | payer MEDICARE, SELFPAY ==
[2021-11-14] MEDS: Normal Saline Flush 10 ML SYR IVP (12:18)
[2021-11-14 12:51] LABS: Abs Immature Grans 0.02 10^3/uL (0.0-0.06); Absolute Basophil Count 0.02 10^3/uL (0.0-0.2); Absolute Eosinophil Count 0.04 10^3/uL (0.0-0.7); Absolute Lymphocyte Count 0.49 10^3/uL (1.2-3.4); Absolute Monocyte Count 0.46 10^3/uL (0.1-0.8); Absolute Neutrophil Count 5.85 10^3/uL (1.2-6.7); Basophils % 0.3; Eosinophils % 0.6; HCT 38.4 % (36.0-46.0); Immature Grans % 0.3; Lymphocytes % 7.1; MCH 27.8 pg (27.0-33.0); MCHC 31.3 % (32.0-36.0); MCV 88.9 fL (80-95); MPV 9.1 fL (8.0-11.0); Monocytes % 6.7; Nucleated RBC 0 %; Platelet Count 185 10^3/uL (130-400); RBC 4.32 10^6/uL (3.93-5.22); RDW 15.7 % (11.7-14.6); RDW-SD 50.9 fL; WBC 6.88 10^3/uL (4.4-10.8)
[2021-11-14 13:12] LABS: ALT 15 U/L (14-59); AST 19 U/L (15-37); Albumin 3.2 g/dL (3.4-5.0); Alkaline Phosphatase 33 U/L (46-116); Anion Gap 8.2 mmol/L (3-11); BUN 18 mg/dL (7-18); Bilirubin, Total 0.6 mg/dL (0.2-1.0); CO2 28.8 mmol/L (21.0-32.0); CREATININE 0.8 mg/dL (0.55-1.02); Calcium 8.7 mg/dL (8.5-10.1); Chloride 103 mmol/L (98-107); Glucose 85 mg/dL (74-106); Magnesium 1.9 mg/dL (1.8-2.4); Potassium 3.8 mmol/L (3.5-5.1); Sodium 140 mmol/L (136-145); TSH 1.04 uIU/mL (0.36-3.74); Total Protein 7.3 g/dL (6.4-8.2)
[2021-11-14 13:56] LABS: PHOSPHORUS 3.8 mg/dL (2.6-4.7)
[2021-11-14 14:03] LABS: FREE T4 0.97 ng/dL (0.76-1.46)
[2021-11-21 13:07] LABS: Abs Immature Grans 0.05 10^3/uL (0.0-0.06); Absolute Basophil Count 0.02 10^3/uL (0.0-0.2); Absolute Eosinophil Count 0.01 10^3/uL (0.0-0.7); Absolute Lymphocyte Count 0.13 10^3/uL (1.2-3.4); Absolute Monocyte Count 0.84 10^3/uL (0.1-0.8); Basophils % 0.2; Eosinophils % 0.1; HCT 37.5 % (36.0-46.0); Immature Grans % 0.6; Lymphocytes % 1.5; MCH 27.9 pg (27.0-33.0); MCV 87.2 fL (80-95); MPV 9.4 fL (8.0-11.0); Monocytes % 9.8; Neutrophils % 87.8; Nucleated RBC 0 %; Platelet Count 197 10^3/uL (130-400); RDW 15.7 % (11.7-14.6); RDW-SD 50.3 fL; WBC 8.55 10^3/uL (4.4-10.8)
[2021-11-21 13:29] LABS: ALT 13 U/L (14-59); AST 16 U/L (15-37); Alkaline Phosphatase 28 U/L (46-116); Anion Gap 11.7 mmol/L (3-11); BUN 16 mg/dL (7-18); CO2 25.3 mmol/L (21.0-32.0); Calcium 8.3 mg/dL (8.5-10.1); Chloride 102 mmol/L (98-107); FREE T4 1.25 ng/dL (0.76-1.46); Glucose 111 mg/dL (74-106); Magnesium 1.8 mg/dL (1.8-2.4); Sodium 139 mmol/L (136-145); TSH 0.87 uIU/mL (0.36-3.74); Total Protein 6.9 g/dL (6.4-8.2)
== END 2021-11-21 23:59 | disposition home or self-care (01) ==
LOC: INF 01:21
PROVIDERS: Nurse Practitioner; PCP Nurse Practitioner Family; Visit Provider Internal Medicine Medical Oncology
DX: C34.91 Malignant neoplasm of unspecified part of right bronchus or lung (principal); E55.9 Vitamin D deficiency, unspecified; Z79.899 Other long term (current) drug therapy; Z45.2 Encounter for adjustment and management of vascular access device
CPT/HCPCS: 36591; 80053; 82306; 83735; 84100; 84439; 84443; 85025

== ENCOUNTER 2021-12-06 00:44 | Outpatient (CLI) | payer MEDICARE, SELFPAY ==
[2021-12-06] MEDS: Gadoterate meglumine 20 ML VIAL 13 ML IVP (09:52)
[2021-12-06] MEDS: Normal Saline Flush 10 ML SYR IVP (09:52)
--- NOTE | 2021-12-06 10:00 | DI.MRI_ITS ---
Exam(s) MR BRAIN WO/W EXAM: MR BRAIN WO/W CLINICAL HISTORY: STAGE IV RT LUNG CA, C34.91, SURVEILLANCE OF THE BRAIN. TECHNIQUE: Multiplanar multisequence MRI of the brain was performed. CONTRAST MATERIAL: IV Contrast: 13 ML of Dotarem contrast administered. COMPARISON: No exams were available for comparison FINDINGS: VENTRICLES AND EXTRA AXIAL SPACES: Normal in size and morphology for the patient's age. HEMORRHAGE: None. CEREBRAL PARENCHYMA: No focus of restricted diffusion to suggest acute infarct. No space-occupying le naun identified. MIDLINE SHIFT: None. BRAINSTEM/CEREBELLUM: Normal. CALVARIUM: Normal. ENHANCEMENT: No suspicious enhancement identified. VISUALIZED PARANASAL SINUSES/MASTOIDS: Minimal mucous floor right maxillary sinus OTHER FINDINGS: None. IMPRESSION: Unremarkable MRI of the brain. No evidence of metastatic disease. DATA REPOSITORY:
[2021-12-06] MEDS: Omnipaque 350 MG/ML 100 ML BTL IJ (10:34)
--- NOTE | 2021-12-06 10:35 | DI.CT_ITS ---
Exam(s) CT CHEST W EXAM: CT CHEST W CLINICAL HISTORY: STAGE IV LUNG CA, RT, S/P SYSTEMIC THERAPY MEDIASTINAL RT, ASSESS TX TECHNIQUE: Imaging Protocol: Axial computed tomography images with coronal and sagittal reformatted images were created and reviewed CONTRAST MATERIAL: Intravenous: Omnipaque 350 Contrast volume:70 ml. COMPARISON: CT CT CHEST W from 02/14/[address] CHEST W from 10/06/2021 FINDINGS: Tracheobronchial tree: No bronchiectasis or mucous plugging. Pulmonary parenchyma: Stable mass right upper lobe above minor fissure. Stable nodular density medial right lung apex. Stable area of non nodular scarring anterior right upper lobe. No left lung masses. No new abnormalities. No infiltrates. Severe emphysematous and fibrotic changes. Pleura: No effusion or pneumothorax. Heart: The heart is not dilated. Coronary artery calcifications are seen. Aorta: Thoracic aorta non-dilated. Atherosclerotic changes. Aberrant right subclavian artery. Abdom inal aorta shows a stent, partially visualized. Upper abdomen: Unremarkable. Lymph nodes: Interval decrease in size mediastinal and right hilar lymph nodes. Right hilar lymph nod e measures 1.9 cm transverse by 9 millimeters cephalocaudad compared with 2.4 by 2.6 cm on the previo us exam Bones: Degenerative changes. No lytic or blastic lesions or evidence of spine fracture. Tubes, Catheters, and Lines: Port over right pectoral muscle Soft tissues: Unremarkable. IMPRESSION: Stable right lung nodules. Interval decrease in size of right hilar and mediastinal adenopathy. No ne w abnormalities. RADIATION DOSE DELIVERED: 501.67mGy.cm Total DLP DATA REPOSITORY: All CT scans at this facility are submitted to the National Radiology Data Registry (NRDR) Dose Index Registry (DIR) with the [employer] (ACR). RADIATION OPTIMIZATION: All CT scans at this facility use at least one of these dose optimization te chniques: automated exposure control; mA and/or kV adjustment per patient size (includes targeted exa ms where dose is matched to clinical indication); or iterative reconstruction.
== END 2021-12-06 01:04 ==
PROVIDERS: PCP Nurse Practitioner Family; Visit Provider Internal Medicine Medical Oncology
DX: C34.91 Malignant neoplasm of unspecified part of right bronchus or lung (principal); Z12.89 Encounter for screening for malignant neoplasm of other sites; R59.0 Localized enlarged lymph nodes
CPT/HCPCS: 70553; 96523; 71260; J3490

== ENCOUNTER 2021-12-19 02:22 | Outpatient (RCR) | payer MEDICARE, SELFPAY ==
[2021-12-06] MEDS: Heparin 500 UNITS/5 ML SYRINGE IVP (09:03)
[2021-12-06] MEDS: Normal Saline Flush 10 ML SYR IVP (09:03)
[2021-12-19] MEDS: Normal Saline Flush 10 ML SYR IVP (09:24)
[2021-12-19 09:37] LABS: Abs Immature Grans 0.15 10^3/uL (0.0-0.06); Absolute Basophil Count 0.05 10^3/uL (0.0-0.2); Absolute Eosinophil Count 0.15 10^3/uL (0.0-0.7); Absolute Lymphocyte Count 0.33 10^3/uL (1.2-3.4); Absolute Monocyte Count 0.68 10^3/uL (0.1-0.8); Absolute Neutrophil Count 7.54 10^3/uL (1.2-6.7); Basophils % 0.6; Eosinophils % 1.7; HCT 36.5 % (36.0-46.0); HGB 11.6 g/dL (11.2-15.7); Immature Grans % 1.7; Lymphocytes % 3.7; MCH 28.4 pg (27.0-33.0); MCHC 31.8 % (32.0-36.0); MCV 89.5 fL (80-95); MPV 9.6 fL (8.0-11.0); Monocytes % 7.6; Neutrophils % 84.7; Nucleated RBC 0 %; Platelet Count 247 10^3/uL (130-400); RBC 4.08 10^6/uL (3.93-5.22); RDW 16.5 % (11.7-14.6); RDW-SD 53.8 fL
[2021-12-19 10:02] LABS: ALT 13 U/L (14-59); AST 18 U/L (15-37); Alkaline Phosphatase 31 U/L (46-116); Anion Gap 7.2 mmol/L (3-11); BUN 21 mg/dL (7-18); Bilirubin, Total 0.5 mg/dL (0.2-1.0); CO2 26.8 mmol/L (21.0-32.0); CREATININE 1.1 mg/dL (0.55-1.02); Calcium 8.7 mg/dL (8.5-10.1); Chloride 105 mmol/L (98-107); Estimated GFR 48.55 (mL/min/1.73m2); FREE T4 1.06 ng/dL (0.76-1.46); Glucose 95 mg/dL (74-106); Magnesium 1.7 mg/dL (1.8-2.4); Potassium 4.2 mmol/L (3.5-5.1); Sodium 139 mmol/L (136-145); TSH 1.47 uIU/mL (0.36-3.74); Total Protein 7.3 g/dL (6.4-8.2)
== END 2021-12-22 23:59 | disposition home or self-care (01) ==
LOC: INF 02:22
PROVIDERS: PCP Nurse Practitioner Family; Visit Provider Internal Medicine Medical Oncology
DX: C34.91 Malignant neoplasm of unspecified part of right bronchus or lung (principal); Z79.899 Other long term (current) drug therapy; Z45.2 Encounter for adjustment and management of vascular access device
CPT/HCPCS: 36591; 80053; 96523; 83735; 84439; 84443; 85025

== ENCOUNTER → 2022-01-16 03:41 | Outpatient (CLI) | payer MEDICARE, SELFPAY ==
--- NOTE | 2022-01-16 08:45 | DI.CT_ITS ---
Exam(s) CT CHEST W EXAM: CT CHEST W CLINICAL HISTORY: STAGE IV LUNG CA, RT, C34.91, RESTAGING TECHNIQUE: Imaging Protocol: Axial computed tomography images with coronal and sagittal reformatted images were created and reviewed CONTRAST MATERIAL: Intravenous: Omnipaque 350 Contrast volume:70 mL. COMPARISON: CT CT CHEST W from 10/06/[address] CHEST W from 12/05/2021 FINDINGS: Tracheobronchial tree: Patent where visualized. Pulmonary parenchyma: There are no focal consolidating infiltrates. Moderately severe centrilobular and paraseptal emphysematous changes are present. Fibrotic changes are present in the lungs. There is a stable mass seen in the right lung adjacent to the minor fissure. The 7 mm nodule in the right lung apex medially is unchanged. There is a new 9 mm nodule in the lateral aspect of the right lung base adjacent to the major fissure. There is a new 1 x 1.3 cm pleural based nodule in the left lower lobe posteriorly. There is a 0.7 x 0.8 cm pleural based nodule in the left upper lobe anteriorly. Mediastinum and Brigette: Stable mediastinal and hilar adenopathy. The esophagus is unremarkable. Thyroid gland: Unremarkable. Pleura: No effusion or pneumothorax. Heart: The heart is not dilated. Coronary artery calcifications are present. No pericardial effusion . Aorta: Thoracic aorta non-dilated. Atherosclerosis is present. There is ectasia of the visualized up per abdominal aorta. Pulmonary arteries: The pulmonary arteries are inadequately opacified for evaluation of pulmonary emb olic disease. Upper abdomen: There is a 1.1 x 1 cm area of decreased attenuation in the right lobe of the liver (s eries 3, image 440). There also appears to be a new area of decreased attenuation in the right lobe of the liver adjacent to the right portal vein. (Series 3, image 525). There is an area of decrease d attenuation adjacent to the gallbladder fossa which may represent fatty infiltration versus mass. Lymph nodes: No significant axillary adenopathy is present. Bones: There is now a mottled appearance of the humeral heads bilaterally. This also involves the in ferior aspect of the left scapula. Metastatic disease should be considered. Tubes, Catheters, and Lines: The patient has an indwelling central venous catheter. The tip is in go od position at the junction of the superior vena cava and right atrium. Soft tissues: Unremarkable. IMPRESSION: 1. New pulmonary nodules in addition to the stable previously seen right upper lobe and right middle lobe pulmonary nodules. 2. New subtle areas of decreased attenuation in the liver suspicious for metastatic disease. CT or M RI of the liver is recommended for further evaluation. 3. Mottled appearance of the humeral heads in the inferior aspect of the left scapula suspicious for metastasis. Bone scan should be obtained for further evaluation. RADIATION DOSE DELIVERED: 446.43mGy.cm Total DLP DATA REPOSITORY: All CT scans at this facility are submitted to the National Radiology Data Registry (NRDR) Dose Index Registry (DIR) with the [employer] (ACR). RADIATION OPTIMIZATION: All CT scans at this facility use at least one of these dose optimization te chniques: automated exposure control; mA and/or kV adjustment per patient size (includes targeted exa ms where dose is matched to clinical indication); or iterative reconstruction.
[2022-01-16] MEDS: Omnipaque 350 MG/ML 100 ML BTL IJ (08:48)
== END ==
PROVIDERS: PCP Nurse Practitioner Family; Visit Provider Nurse Practitioner Adult Health
DX: C34.91 Malignant neoplasm of unspecified part of right bronchus or lung (principal); J43.2 Centrilobular emphysema; K76.89 Other specified diseases of liver; K82.8 Other specified diseases of gallbladder; M84.822 Other disorders of continuity of bone, left humerus; R91.8 Other nonspecific abnormal finding of lung field
CPT/HCPCS: 96523; 71260; J3490

== ENCOUNTER 2022-01-16 04:21 | Outpatient (RCR) | payer MEDICARE, SELFPAY ==
[2022-01-16] MEDS: Normal Saline Flush 10 ML SYR IVP ×2 (08:05→08:59)
[2022-01-16] MEDS: Heparin 500 UNITS/5 ML SYRINGE IV (08:59)
== END 2022-01-21 23:59 | disposition home or self-care (01) ==
LOC: INF 04:21
PROVIDERS: PCP Nurse Practitioner Family; Visit Provider Internal Medicine Medical Oncology
DX: Z45.2 Encounter for adjustment and management of vascular access device (principal)
CPT/HCPCS: 96523

== ENCOUNTER 2022-01-23 01:23 | Outpatient (RCR) | payer MEDICARE, SELFPAY ==
[2022-01-23] MEDS: Normal Saline Flush 10 ML SYR IVP (13:31)
[2022-01-23] MEDS: Heparin 500 UNITS/5 ML SYRINGE IV (13:31)
[2022-01-23 13:41] LABS: MCH 28.3 pg (27.0-33.0); MCHC 32.1 % (32.0-36.0); MCV 88 fL (80-95); MPV 10.1 fL (8.0-11.0); RBC 3.18 10^6/uL (3.93-5.22); RDW 16.6 % (11.7-14.6); RDW-SD 53.4 fL; WBC 8.64 10^3/uL (4.4-10.8)
[2022-01-23 14:08] LABS: ALT 17 U/L (14-59); AST 48 U/L (15-37); Albumin 2.6 g/dL (3.4-5.0); Alkaline Phosphatase 45 U/L (46-116); Anion Gap 9.9 mmol/L (3-11); BUN 16 mg/dL (7-18); Bilirubin, Total 0.4 mg/dL (0.2-1.0); CO2 27.1 mmol/L (21.0-32.0); Chloride 98 mmol/L (98-107); FREE T4 1.04 ng/dL (0.76-1.46); Glucose 146 mg/dL (74-106); Potassium 3.5 mmol/L (3.5-5.1); Sodium 135 mmol/L (136-145); TSH 1.52 uIU/mL (0.36-3.74); Total Protein 6.8 g/dL (6.4-8.2)
[2022-01-23 14:10] LABS: Absolute Lymphocyte Count 0.26 10^3/uL (1.2-3.4); Bands % 6; Platelet Count 62 10^3/uL (130-400)
[2022-01-23 14:11] LABS: Absolute Monocyte Count 0.35 10^3/uL (0.1-0.8); Diff Comment Manual Differential; Metamyelocytes % 3; Myelocytes % 1; Other Cells % 1; RBC Morphology Normal
== END 2022-02-08 23:59 | disposition home or self-care (01) ==
LOC: INF 01:23
PROVIDERS: PCP Nurse Practitioner Family; Visit Provider Internal Medicine Medical Oncology
DX: C34.91 Malignant neoplasm of unspecified part of right bronchus or lung (principal); Z79.899 Other long term (current) drug therapy; Z45.2 Encounter for adjustment and management of vascular access device
CPT/HCPCS: 36591; 80053; 83735; 84439; 84443; 85025

== ENCOUNTER → 2022-01-31 00:43 | Outpatient (CLI) | payer MEDICARE, SELFPAY | PROVIDERS: PCP Nurse Practitioner Family; Visit Provider Nurse Practitioner ==